=== PATIENT | female | born 1945 | race Caucasian/White ===

== ENCOUNTER 2017-03-13 06:10 | Inpatient (IN) ==
[2017-03-13] MEDS ORDERED: Lidocaine -MPF 1% 2 ML VIAL ID ONE (06:26)
[2017-03-13] MEDS ORDERED: CeFAZolin Syr 2,000MG/20 ML 2,000 MG/20 ML SYRINGE IVPB ONE (06:26)
[2017-03-13] MEDS ORDERED: Albuterol 2.5 MG/3 ML NEBULIZER IH ONE (06:26)
[2017-03-13] MEDS: Ringers Solution, Lactated 1,000 ML IVC SCH ×2 (06:40→11:23)
[2017-03-13] MEDS ORDERED: Lidocaine -MPF 4% 5 ML AMPUL ONE (06:51)
[2017-03-13] MEDS ORDERED: *HR* FentaNYL (PF) 100 MCG/2 ML VIAL ONE ×2 (06:51→08:52)
[2017-03-13] MEDS ORDERED: *HR* Propofol 200 MG/20 ML VIAL IVP ONE (06:51)
[2017-03-13] MEDS ORDERED: Lidocaine -MPF 2% 2 ML VIAL ONE ×2 (06:51→07:09)
[2017-03-13] MEDS ORDERED: Ondansetron 4 MG/2 ML VIAL ONE (06:52)
[2017-03-13] MEDS ORDERED: *HR* Heparin 5,000 UNIT/ML VIAL ONE (06:53)
--- NOTE | 2017-03-13 07:04 | Anesthesia Evaluation PreOp ---
Date of Encounter: 03/13/17 Time of Encounter: 07:00 - Past History Planned Operation: iliaac stent Cardiac History: HTN, Hyperlipidemia Pulmonary History: Smoker FIRE DISPATCHER History: Denies Any Significant HX Other Medical History: Thyroid, GERD Anesthesia History: No Prior Anesthetic Complications, Past Anesthesia Alcohol Use: none Drug use: none Medications and Allergies Clopidogrel [Plavix] 75 mg PO DAILY 05/25/15 [History] Omeprazole [PriLOSEC] 20 mg PO BIDAC #20 capsule. 05/25/15 [Rx] Acetaminophen [Tylenol] 1,000 mg PO Q6HR PRN #90 tablet 01/29/17 [Rx] Fluticasone Propionate Nasal [Flonase] 50 mcg NS HS 01/29/17 [History] Lisinopril [Zestril] 5 mg PO DAILY 01/29/17 [History] Loratadine [Claritin] 10 mg PO DAILY 01/29/17 [History] Olopatadine HCl [Patanol] 5 ml OP BID 01/29/17 [History] 3 Allergy/AdvReac Type Severity Reaction Status Date / Time No Known Allergies Allergy Verified 06/08/16 12:39 - Meds/Allergy Pre-op Review Medications Reviewed: Yes Allergies Reviewed: Yes Beta Blockers on Current Med List: No Anesthesia Results - Labs Laboratory Tests 03/12/17 03/12/17 03/12/17 16:50 16:50 16:50 WBC 7.9 Hgb 12.5 Hct 37.4 Plt Count 303 PT 12.1 INR 1.1 APTT 31.3 Sodium 141 Potassium 4.1 Chloride 104 Carbon Dioxide 27 BUN 9 Creatinine 0.78 - Imaging EKG: image reviewed (sinus rhythm) Anesthesia Exam Weight: 54 kg NPO (# of Hours): over 8 hours - HEENT Pupil (Motor): Pupils equal Mallampati: I Teeth: Edentulous Oral Opening: Greater than 3 - Cardiac Rhythm: Regular Murmur: None - Pulmonary Breath Sounds: bilateral Rhonchi (clears with coughing) Respiratory Effort: Symmetrical Anesthesia Assess/Plan ASA Score: 3 Modified Kari Scale for Level of Consciousness: Cooperative, oriented, and tranquil Anesthetic Plan: General Monitoring Plan: Standard Monitors Recovery Plan: PACU
[2017-03-13] MEDS ORDERED: Heparin 1,000 UNITS/500 mL NS 1,500 ML ONE (07:19)
[2017-03-13] MEDS ORDERED: Vancomycin 1,000 MG VIAL ONE (07:20)
[2017-03-13] MEDS ORDERED: Vancomycin 750 MG in D5% in Water 250 ML IVPB ONE ×3 (07:31→20:30)
--- NOTE | 2017-03-13 07:31 | History & Physical Report ---
Date of Encounter: 03/13/17 Time of Encounter: 07:28 24 Hour HP Update - Instructions Instructions: If the History and Physical is less than 30 days old and was completed prior to A.M. admission and or procedure and has NOT been updated on calendar day of procedure please complete this update prior to performing procedure. - Update Patient reports changes in Medical Condition: No Changes in examination, assessment, or condition: No Changes in Medication: No Preop tests/diagnostics Reviewed: Yes Surgery Remains Indicated: Yes Consent for Planned Operative Procedure(s) Verified: Yes - Pre-Operative Checklist Preoperative Checklist Indicated: Yes Prophylactic Antibiotic Ordered: Yes (vancomycin due to MRSA risk) Home Medications Include Beta Judith: No Beta Judith Taken Today (Day of Surgery): No Beta Judith Taken Yesterday (Day Prior to Surgery): No Is VTE Prophylaxis Indicated?: Yes
[2017-03-13] MEDS ORDERED: Esmolol 100 MG/10 ML VIAL IVP ONE (08:25)
[2017-03-13] MEDS ORDERED: Lacri-Lube 3.5 GM TUBE ONE (08:25)
[2017-03-13] MEDS ORDERED: Heparin 1,000 UNITS/500 mL NS 500 ML ONE (08:26)
[2017-03-13] MEDS ORDERED: *HR* Promethazine 25 MG/ML VIAL IVP PRN (08:35)
[2017-03-13] MEDS ORDERED: Ondansetron 4 MG/2 ML VIAL IVP ONE (08:35)
[2017-03-13] MEDS ORDERED: *HR* Labetalol 20 MG/4 ML SYRINGE IVP PRN ×2 (08:35→13:10)
[2017-03-13] MEDS ORDERED: EPHEDrine 50 MG/ML VIAL ONE (09:00)
[2017-03-13] MEDS ORDERED: Dexamethasone 4 MG/ML VIAL ONE (09:40)
[2017-03-13] MEDS ORDERED: *HR* Rocuronium Bromide 50 MG/5 ML VIAL ONE (09:40)
[2017-03-13] MEDS ORDERED: Neostigmine Methylsulfate 3 MG/3 ML SYRINGE ONE (09:40)
[2017-03-13] MEDS ORDERED: *HR* Phenylephrine 10 MG/ML VIAL ONE (09:40)
[2017-03-13] MEDS ORDERED: *HR* Labetalol 100 MG/20 ML MDV ONE (10:11)
[2017-03-13] MEDS ORDERED: *HR* HYDROmorphone 2 MG/ML SYRINGE ONE (10:17)
--- NOTE | 2017-03-13 10:30 | Operative Note ---
Date of procedure: 03/13/17 Pre-op diagnosis: Peripheral vascular disease with disabling claudication Post-op diagnosis: same Procedure: 1. Introduction of catheter into aorta via right common femoral artery. 2. Aortogram with iliac angiogram. 3. Right external iliac artery 6 x 37mm stent placement. 4. Right iliofemoral and deep femoral artery endarterectomy with bovine pericardial patch angioplasty. Complications: None Anesthesia: GETA Surgeon: Juve Hilton Estimated blood loss (cc): 50 Specimen: right lower extremity plaque Condition: stable Disposition: PACU Procedure in Detail: Indications: The patient is a 71 year old female who has peripheral vascular disease with severe disabling claudication and angiography revealed severe right iliac and femoral artery stenosis. Revascualrization was recommended to reduce her symptoms and risk of limb loss. Procedure: The patient was identified in the preoperative area. The risks, benefits and alternatives of the procedure were discussed and all questions were answered. The patient was taken to the operating room and placed in the supine position on the operating room table. After the induction of general endotracheal anesthesia, the patient was cleaned and draped in the normal sterile fashion. An oblique incision was made sharply over the right femoral vessels. Hemostasis was obtained with electrocautery. Through a process of blunt, sharp and electrocautery dissection, the distal external iliac, deep and superficial femoral arteries were dissected and surrounded with vessel loops. The patient received a bolus of heparin. After waiting adequate time for the heparin to circulate, the vessels were occluded with the vessel loops. The right common femoral artery was cannulated with a micropuncture needle. A microwire was advanced though the needle into the aorta under fluoroscopic view. The needle was exchanged for a micropuncture sheath. The wire and introducer were removed. A marshallindex wire was advanced into the aorta under fluroscopic view. The 4 belarusian microsheath was exchanged for a 6 bel[place]ian sheath over the wire. Angiography was performed for sizing. After obtaining an angiogram for measurements, A 6 x 37mm stent was advanced over the wire and positioned under fluoroscopic guidance. The stent was deployed and a completion angiogram revealed resolution of the stenotic segment. The wire and sheath was removed. The vessels were occluded by applying tension to the vessel loops. A longitudinal arteriotomy was in the common femoral artery and extended proximally into the distal external iliac artery. The plaque was noted to be firm and have multiple rossy of severe stenosis. An iliofemoral artery endarterectomy were then performed with a dental freer. Proximal and distal endpoints were inspected and no elevated flaps were noted. Release of the deep femoral vessel loop revealed stenosis with limited retrograde flow. An eversion endarterectomy was then performed on the deep femoral artery using a dental freer. The endpoint was smooth and without elevated flaps. The vessels were flushed with heparin. A bovine pericardial patch was cut to fit the arteriotomy and was sutured in place with a running 6- 0 Prolene suture. Prior to completing the patch, the vessels were flushed and infused with heparinized saline. The patch was completed and flow was restored. A polyphasic signal was identified in the superficial femoral and deep femoral arteries. The wound was irrigated with antibiotic containing saline. Hemostasis was obtained with electrocautery. Platelet rich and platelet poor plasma were infused into the wound. The wound was reapproximated with 2-0 and 3-0 vicryl. Skin was reapproximated with 3-0 Monocryl. Sterile dressings were applied. The patient was extubated and taken to the recover room in stable condition.
[2017-03-13] MEDS: *HR* HYDROmorphone (PF) 1 MG/ML SYRINGE IVP PRN ×2 (10:51→10:59)
[2017-03-13] MEDS ORDERED: Acetaminophen 325 MG TABLET PO PRN (13:10)
[2017-03-13] MEDS ORDERED: *HR* Morphine 2 MG/ML SYRINGE IVP PRN (13:10)
[2017-03-13] MEDS ORDERED: *HR* HYDROcodone/Acet 5/325 mg TABLET PO PRN (13:10)
[2017-03-13] MEDS ORDERED: Naloxone 0.4 MG/ML INJ IVP PRN (13:10)
[2017-03-13] MEDS ORDERED: Ondansetron 4 MG/2 ML VIAL IVP PRN (13:10)
[2017-03-13] MEDS ORDERED: Fluticasone Propionate Nasal 50 MCG/SPRAY BOTTLE NS PRN (13:10)
[2017-03-13] MEDS ORDERED: *HR* OxyCODONE Immed Rel 5 MG TABLET PO PRN (13:10)
[2017-03-13] MEDS: *HR* Metoprolol 5 MG/5 ML VIAL IVP SCH ×2 (13:59→17:58)
[2017-03-13] MEDS: CeFAZolin Premix DUPLEX 2,000 MG/50 ML BAG IVPB SCH (17:58)
[2017-03-13] MEDS ORDERED: Vancomycin 0 MG in D5% in Water 250 ML IVPB ONE (18:30)
[2017-03-13] MEDS: (Olopatadine Hcl [Patanol] 5 ML) OP SCH (21:13)
[2017-03-14] MEDS: *HR* Metoprolol 5 MG/5 ML VIAL IVP SCH ×2 (02:59→06:42)
[2017-03-14] MEDS: CeFAZolin Premix DUPLEX 2,000 MG/50 ML BAG IVPB SCH (03:52)
[2017-03-14] MEDS ORDERED: *HR* Heparin 5,000 UNIT/ML VIAL SQ SCH ×2 (06:00)
[2017-03-14 06:26] LABS: Basophils % 0.2 %; Eosinophils # 0.1 K/mcL (0.0-0.6); Eosinophils % 0.5 %; Hematocrit 31.4 % (35.3-44.9); Hemoglobin 10.3 g/dL (11.5-15.4); Immature Granulocytes % 0.2 % (0-4); Lymphocytes # 2.6 K/mcL (0.6-4.6); Lymphocytes % 26.3 %; Mean Corpuscular HGB Conc 32.8 g/dL (31.6-35.5); Mean Corpuscular Hemoglobin 29.5 pg (28.0-33.3); Mean Platelet Volume 9.2 fL (9.4-12.4); Monocytes # 0.8 K/mcL (0.0-1.3); Monocytes % 7.9 %; Neutrophils # 6.5 K/mcL (1.6-8.9); Platelet Count 229 K/mcL (140-400); Red Blood Count 3.49 M/mcL (3.82-4.97); Red Cell Distribution Width 13.9 % (11.5-14.5); Segmented Neutrophils % 64.9 %
[2017-03-14 06:29] LABS: BUN/Creatinine Ratio 14 (6-26); Blood Urea Nitrogen 10 mg/dL (7-20); Calcium 8.6 mg/dL (8.6-10.8); Carbon Dioxide 22 mEq/L (19-29); Chloride 105 mEq/L (98-109); Glucose 107 mg/dL (70-99); Osmolality,Calculated 290 (280-300); Potassium 3.7 mEq/L (3.5-4.5); Sodium 140 mEq/L (136-145); eGFR For African Americans > 60 (> 60); eGFR For Non-African Americans > 60 (> 60)
--- NOTE | 2017-03-14 07:25 | Discharge Summary ---
Date of Encounter: 03/14/17 Time of Encounter: 08:05 - Discharge Medications Prescriptions: HYDROcodone/Acet 5/325 mg [Grant 5-325 mg] 1 tab PO Q4H PRN #18 tablet PRN Reason: POSTOPERATIVE PAIN Home Medications: Clopidogrel [Plavix] 75 mg PO DAILY 05/25/15 [History] Fluticasone Propionate Nasal [Flonase] 50 mcg NS HS PRN 01/29/17 [History] Olopatadine HCl [Patanol] 5 ml OP BID 01/29/17 [History] Lisinopril [Zestril] 10 mg PO DAILY 03/13/17 [History] Montelukast [Singulair] 10 mg PO HS 03/13/17 [History] Omeprazole [PriLOSEC] 40 mg PO DAILY 03/13/17 [History] Xyzal 5 mg PO DAILY 03/13/17 [History] HYDROcodone/Acet 5/325 mg [Grant 5-325 mg] 1 tab PO Q4H PRN #18 tablet 03/14/17 [Rx] Allergies/Adverse Reactions: 3 Allergy/AdvReac Type Severity Reaction Status Date / Time No Known Allergies Allergy Verified 03/13/17 07:25 Date of admission: 03/13/17 13:08 Primary care physician: PCP NONE - Patient Status Disposition: Home, Self-Care Condition: Good Functional capacity at discharge: independent ambulation Overall status at discharge: patient is back to baseline - Discharge Instructions Instructions: Peripheral Vascular Disorders (DC), Peripheral Vascular Angioplasty (DC) Follow Up With: Juve Hilton MD [Partnered Physician] - 04/09/17 2:00 pm NONE,PCP [Primary Care Provider] - Additional Instructions: May remove bandage and shower 03/15/17. Wash wound gently and pat to dry. Apply dry gauze to wound daily for 7 days. No tub baths or swimming until 04/11/16. Call Dr. Hilton at [phone] with questions or concerns. - Diet and Activity Activity: increase activity as tolerated Diet: advance to your usual diet - Hospital Course Hospital course: Ms. Myers is a 71 year old female - Time Spent with Patient Total time spent providing and/or coordinating discharge services: Exam Vital Signs, Last 4 Hours Temp Pulse Resp BP Pulse Ox 03/14/17 06:00 70 16 129/80 95 03/14/17 04:00 98.3 F 73 20 124/67 95 - VTE Documentation of Mechanical Device: Intermittent pneumatic compression device
[2017-03-14] MEDS: (Olopatadine Hcl [Patanol] 5 ML) OP SCH (09:32)
[2017-03-14 11:28] VITALS: BP 138/67
== END 2017-03-14 11:40 | disposition home or self-care (01) | DRG 254 ==
LOC: SAMDAY 06:10 → ICNU 13:08
PROVIDERS: ADMIT Surgery; ATTEND Surgery

== ENCOUNTER 2021-02-15 09:15 | Inpatient (IN) ==
[2021-02-15] MEDS ORDERED: CeFAZolin Syr 2,000MG/20 ML 2,000 MG/20 ML SYRINGE IVPB ONE (09:38)
[2021-02-15] MEDS ORDERED: *HR* Propofol 200 MG/20 ML VIAL IVP ONE (09:39)
[2021-02-15] MEDS ORDERED: Ondansetron 4 MG/2 ML VIAL ONE (09:39)
[2021-02-15] MEDS ORDERED: Lidocaine -MPF 2% 5 ML VIAL ONE ×2 (09:39→12:17)
[2021-02-15] MEDS ORDERED: *HR* Succinylcholine 200 MG/10 ML VIAL IVP ONE (09:39)
[2021-02-15] MEDS ORDERED: *HR* Rocuronium Bromide 50 MG/5 ML VIAL ONE (09:39)
[2021-02-15] MEDS ORDERED: Lidocaine HCL 4 ML Topical Solution (Laryng-O-Jet Kit Sterile Pak) TP ONE (09:39)
[2021-02-15] MEDS ORDERED: *HR* FentaNYL (PF) 100 MCG/2 ML VIAL ONE (09:39)
[2021-02-15] MEDS ORDERED: Famotidine 20 MG/2 ML VIAL IVP ONE (09:43)
[2021-02-15] MEDS ORDERED: *HR* Labetalol 20 MG/4 ML SYRINGE IVP PRN ×2 (09:43→16:33)
[2021-02-15] MEDS ORDERED: Acetaminophen IV 1,000 MG/100 ML BAG IVPB ONE (09:43)
[2021-02-15] MEDS ORDERED: *HR* OxyCODONE Immed Rel 5 MG TABLET PO PRN ×2 (09:43→16:33)
[2021-02-15] MEDS ORDERED: *HR* HYDROmorphone 2 MG TABLET PO PRN (09:43)
[2021-02-15] MEDS ORDERED: Ringers Solution, Lactated 1,000 ML IVC SCH (09:45)
[2021-02-15] MEDS ORDERED: Vancomycin 1,000 MG, Sodium Chloride IRRigation 1,000 ML IR ONE (11:00)
[2021-02-15] MEDS ORDERED: EPHEDrine 50 MG/ML VIAL ONE (13:04)
[2021-02-15] MEDS ORDERED: EPINEPHrine 1 MG/ML VIAL ONE (13:45)
[2021-02-15] MEDS ORDERED: *HR* Vasopressin 20 UNIT/ML VIAL ONE (14:12)
[2021-02-15] MEDS ORDERED: Nitroglycerin 0 MG/0 ML INFUS..BTL IVC ONE (14:12)
[2021-02-15] MEDS ORDERED: *HR* Norepinephrine 4 MG/4 ML VIAL IVC ONE (14:12)
[2021-02-15] MEDS ORDERED: NiCARdipine 2.5 MG/10 ML Syringe IVPB ONE (14:12)
[2021-02-15] MEDS ORDERED: Sugammadex Sodium 200 MG/2 ML VIAL IV ONE (15:00)
[2021-02-15] MEDS: *HR* HYDROmorphone (PF) 1 MG/ML SYRINGE IVP PRN ×2 (15:38→15:48)
[2021-02-15] MEDS ORDERED: Naloxone 0.4 MG/ML INJ IVP PRN (16:33)
[2021-02-15] MEDS ORDERED: Acetaminophen 325 MG TABLET PO PRN (16:33)
[2021-02-15] MEDS ORDERED: 0.9 % Sodium Chloride 500 ML IVC SCH (16:45)
[2021-02-15] MEDS: *HR* HYDROcodone/Acet 5/325 mg TABLET PO PRN ×2 (17:05→23:34)
[2021-02-15] MEDS: *HR* Metoprolol 5 MG/5 ML VIAL IVP SCH ×2 (17:09→23:40)
[2021-02-15] MEDS ORDERED: Heparin 1,000 UNITS/500 mL 1,000 ML ONE (18:44)
[2021-02-15] MEDS ORDERED: Bupivacaine-MPF 0.25% 10 ML VIAL ONE (18:44)
[2021-02-15] MEDS: CeFAZolin 2 GM/120 ML BAG IVPB SCH (19:42)
[2021-02-16] MEDS: CeFAZolin 2 GM/120 ML BAG IVPB SCH (02:24)
[2021-02-16] MEDS: *HR* Metoprolol 5 MG/5 ML VIAL IVP SCH ×2 (05:42→13:25)
[2021-02-16] MEDS ORDERED: *HR* Heparin 5,000 UNIT/ML VIAL SQ SCH ×3 (06:00→06:45)
[2021-02-16] MEDS: *HR* HYDROcodone/Acet 5/325 mg TABLET PO PRN (09:30)
[2021-02-16] MEDS ORDERED: 0.9 % Sodium Chloride 500 ML IVC ONE (10:29)
[2021-02-16] MEDS ORDERED: 0.9 % Sodium Chloride 500 ML ONE (10:38)
[2021-02-16 11:08] VITALS: O2SAT 98
[2021-02-16 11:39] VITALS: BP 160/81
[2021-02-16 11:56] VITALS: PULSE 70; TEMP 98.5
== END 2021-02-16 14:01 | disposition home or self-care (01) | DRG 39 ==
LOC: SAMDAY 09:15 → 2NNU 16:33
PROVIDERS: ADMIT Surgery; ATTEND Surgery

== ENCOUNTER 2021-06-06 11:49 | Inpatient (IN) ==
[~2021-06-06 11:49] MED LIST: Acetaminophen IV 1,000 MG/100 ML BAG IVPB ONE; Famotidine 20 MG/2 ML VIAL IVP ONE
[2021-06-06] MEDS ORDERED: CeFAZolin Syr 2,000MG/20 ML 2,000 MG/20 ML SYRINGE IVPB ONE (12:23)
[2021-06-06] MEDS ORDERED: Albumin Human 5% 12.5 GM/250 ML IV.SOLN ONE (12:24)
[2021-06-06] MEDS ORDERED: *HR* Vasopressin 20 UNIT/ML VIAL ONE (12:24)
[2021-06-06] MEDS ORDERED: Ringers Solution, Lactated 1,000 ML IVC SCH (12:30)
[2021-06-06] MEDS ORDERED: Heparin 1,000 UNITS/500 mL 500 ML ONE (12:31)
[2021-06-06] MEDS ORDERED: *HR* Phenylephrine 10 MG/ML VIAL ONE (12:31)
[2021-06-06] MEDS ORDERED: Protamine Sulfate 50 MG/5 ML VIAL IVP ONE ×2 (12:32→16:05)
[2021-06-06] MEDS ORDERED: Heparin 1,000 UNITS/500 mL 1,000 ML ONE (12:33)
[2021-06-06] MEDS ORDERED: Bupivacaine-MPF 0.25% 10 ML VIAL ONE (12:33)
[2021-06-06] MEDS ORDERED: Vancomycin 1,000 MG VIAL ONE (12:34)
[2021-06-06] MEDS ORDERED: *HR* Remifentanil 2 MG VIAL IVP ONE (12:35)
[2021-06-06] MEDS ORDERED: *HR* Propofol 200 MG/20 ML VIAL IVP ONE (12:37)
[2021-06-06] MEDS ORDERED: Ondansetron 4 MG/2 ML VIAL ONE (12:38)
[2021-06-06] MEDS ORDERED: Lidocaine -MPF 2% 5 ML VIAL ONE (12:38)
[2021-06-06] MEDS ORDERED: *HR* Rocuronium Bromide 50 MG/5 ML VIAL ONE ×2 (12:38→16:21)
[2021-06-06] MEDS ORDERED: Lidocaine HCL 4 ML Topical Solution (Laryng-O-Jet Kit Sterile Pak) TP ONE (12:38)
[2021-06-06] MEDS ORDERED: *HR* FentaNYL (PF) 100 MCG/2 ML VIAL ONE ×2 (12:38→14:34)
[2021-06-06] MEDS ORDERED: *HR* Etomidate 40 MG/20 ML VIAL IVP ONE (13:44)
[2021-06-06] MEDS ORDERED: EPHEDrine 50 MG/ML VIAL ONE (14:00)
[2021-06-06] MEDS ORDERED: *HR* Heparin 5,000 UNIT/ML VIAL ONE (14:38)
[2021-06-06] MEDS ORDERED: Albuterol 2.5 MG/3 ML NEBULIZER IH PRN (15:10)
[2021-06-06] MEDS ORDERED: Ondansetron 4 MG/2 ML VIAL IVP PRN ×2 (15:10→18:34)
[2021-06-06] MEDS ORDERED: *HR* FentaNYL (PF) 100 MCG/2 ML VIAL IVP PRN (15:10)
[2021-06-06] MEDS ORDERED: Nitroglycerin 0.4 MG TAB.SUBL SL PRN (15:10)
[2021-06-06] MEDS ORDERED: Naloxone 0.4 MG/ML INJ IVP PRN ×2 (15:10→18:34)
[2021-06-06] MEDS ORDERED: *HR* HYDROmorphone (PF) 1 MG/ML SYRINGE IVP PRN (15:10)
[2021-06-06] MEDS ORDERED: *HR* Labetalol 20 MG/4 ML SYRINGE IVP ONE (15:11)
[2021-06-06] MEDS ORDERED: Vancomycin 1,000 MG, Sodium Chloride IRRigation 1,000 ML IR ONE (15:40)
[2021-06-06] MEDS ORDERED: Sugammadex Sodium 200 MG/2 ML VIAL IV ONE (16:30)
[2021-06-06] MEDS ORDERED: *HR* HYDROMORPHONE 2 MG/ML VIAL ONE (17:03)
[2021-06-06] MEDS ORDERED: Gabapentin 100 MG CAPSULE PO STA (18:01)
[2021-06-06] MEDS ORDERED: 0.9 % Sodium Chloride 1,000 ML IVC SCH (18:34)
[2021-06-06] MEDS ORDERED: Acetaminophen 325 MG TABLET PO PRN (18:34)
[2021-06-06] MEDS ORDERED: *HR* Labetalol 20 MG/4 ML SYRINGE IVP PRN (18:34)
[2021-06-06] MEDS ORDERED: *HR* HYDROcodone/Acet 5/325 mg TABLET PO PRN (18:34)
[2021-06-06] MEDS ORDERED: *HR* OxyCODONE Immed Rel 5 MG TABLET PO PRN (18:34)
[2021-06-06] MEDS: *HR* Metoprolol 5 MG/5 ML VIAL IVP SCH (20:58)
[2021-06-06] MEDS: CeFAZolin 2 GM/120 ML BAG IVPB SCH (21:03)
[2021-06-07] MEDS: *HR* Metoprolol 5 MG/5 ML VIAL IVP SCH ×3 (00:41→11:38)
[2021-06-07] MEDS: CeFAZolin 2 GM/120 ML BAG IVPB SCH (03:20)
[2021-06-07] MEDS ORDERED: *HR* Heparin 5,000 UNIT/ML VIAL SQ SCH (06:00)
[2021-06-07] MEDS: *HR* Heparin 5,000 UNIT/ML VIAL SQ SCH ×2 (06:11→06:17)
[2021-06-07] MEDS ORDERED: Cholecalciferol (D-3) 1,000 UNIT (25MCG) TABLET PO SCH (09:00)
[2021-06-07] MEDS ORDERED: tiZANidine 4 MG TABLET PO SCH (09:00)
[2021-06-07 11:02] VITALS: BP 129/93; PULSE 79; TEMP 98.6; O2SAT 97
== END 2021-06-07 14:40 | disposition home or self-care (01) | DRG 39 ==
LOC: SAMDAY 11:49 → 2NNU 18:36
PROVIDERS: ADMIT Surgery; ATTEND Surgery

== ENCOUNTER 2021-07-26 09:58 | Inpatient (IN) ==
[2021-07-26] MEDS ORDERED: *HR* FentaNYL (PF) 100 MCG/2 ML VIAL ONE ×2 (10:08→14:20)
[2021-07-26] MEDS ORDERED: *HR* Propofol 200 MG/20 ML VIAL IVP ONE (10:08)
[2021-07-26] MEDS ORDERED: Lidocaine -MPF 2% 2 ML VIAL ONE (10:09)
[2021-07-26] MEDS ORDERED: Ondansetron 4 MG/2 ML VIAL ONE (10:12)
[2021-07-26] MEDS ORDERED: *HR* Rocuronium Bromide 50 MG/5 ML VIAL ONE (10:12)
[2021-07-26] MEDS ORDERED: Lidocaine HCL 4 ML Topical Solution (Laryng-O-Jet Kit Sterile Pak) TP ONE (10:12)
[2021-07-26] MEDS ORDERED: CeFAZolin Syr 2,000MG/20 ML 2,000 MG/20 ML SYRINGE IVPB ONE (10:35)
[2021-07-26] MEDS: Ringers Solution, Lactated 1,000 ML IVC SCH ×2 (11:02→16:58)
[2021-07-26] MEDS ORDERED: *HR* OxyCODONE Immed Rel 5 MG TABLET PO PRN ×2 (11:21→19:05)
[2021-07-26] MEDS ORDERED: *HR* HYDROmorphone 2 MG TABLET PO PRN (11:21)
[2021-07-26] MEDS ORDERED: *HR* Labetalol 20 MG/4 ML SYRINGE IVP PRN ×2 (11:21→19:05)
[2021-07-26] MEDS ORDERED: Famotidine 20 MG/2 ML VIAL IVP ONE (11:21)
[2021-07-26] MEDS ORDERED: ACETAMINOPHEN 720 MG/72 ML IVPB ONE (11:21)
[2021-07-26] MEDS ORDERED: Ipratropium/Albuterol Neb 3 ML IH ONE (11:57)
[2021-07-26] MEDS ORDERED: Protamine Sulfate 50 MG/5 ML VIAL IVP ONE (12:08)
[2021-07-26] MEDS ORDERED: Bupivacaine-MPF 0.25% 10 ML VIAL ONE (12:08)
[2021-07-26] MEDS ORDERED: Heparin 1,000 UNITS/500 mL 1,000 ML ONE (12:09)
[2021-07-26] MEDS ORDERED: Vancomycin 1,000 MG, Sodium Chloride IRRigation 1,000 ML IR ONE (12:10)
[2021-07-26] MEDS ORDERED: EPHEDrine 50 MG/ML VIAL ONE (13:11)
[2021-07-26] MEDS ORDERED: *HR* Heparin 5,000 UNIT/ML VIAL ONE (14:25)
[2021-07-26] MEDS ORDERED: Sugammadex Sodium 200 MG/2 ML VIAL IV ONE (15:43)
[2021-07-26] MEDS: *HR* HYDROmorphone (PF) 1 MG/ML SYRINGE IVP PRN ×4 (16:06→16:39)
[2021-07-26] MEDS ORDERED: 0.9 % Sodium Chloride 1,000 ML IVC SCH (19:05)
[2021-07-26] MEDS ORDERED: Naloxone 0.4 MG/ML INJ IVP PRN (19:05)
[2021-07-26] MEDS ORDERED: traZODone 50 MG TABLET PO PRN (19:05)
[2021-07-26] MEDS ORDERED: Acetaminophen 325 MG TABLET PO PRN (19:05)
[2021-07-26] MEDS ORDERED: CeFAZolin 2 GM/120 ML BAG IVPB SCH (19:05)
[2021-07-26] MEDS: *HR* Metoprolol 5 MG/5 ML VIAL IVP SCH ×2 (20:30→23:16)
[2021-07-26] MEDS: CeFAZolin 2 GM/120 ML BAG IVPB SCH (20:43)
[2021-07-26] MEDS: *HR* HYDROcodone/Acet 5/325 mg TABLET PO PRN (20:43)
[2021-07-26] MEDS ORDERED: tiZANidine 4 MG TABLET PO SCH (21:00)
[2021-07-27] MEDS: CeFAZolin 2 GM/120 ML BAG IVPB SCH (03:37)
[2021-07-27 03:52] LABS: Basophils % 0.5 %; Eosinophils % 0.1 %; Hematocrit 20.7 % (35.3-44.9); Hemoglobin 6.4 g/dL (11.5-15.4); Immature Granulocytes % 0.5 % (0-4); Lymphocytes # 1.4 K/mcL (0.6-4.6); Lymphocytes % 16.7 %; Mean Corpuscular HGB Conc 30.9 g/dL (31.6-35.5); Mean Corpuscular Hemoglobin 28.1 pg (28.0-33.3); Mean Corpuscular Volume 90.8 fL (83.0-100.0); Mean Platelet Volume 9.3 fL (9.4-12.4); Monocytes # 0.8 K/mcL (0.0-1.3); Monocytes % 9.2 %; Platelet Count 221 K/mcL (140-400); Red Blood Count 2.28 M/mcL (3.82-4.97); Red Cell Distribution Width 13.8 % (11.5-14.5); White Blood Count 8.2 K/mcL (4.3-11.1)
[2021-07-27 04:06] LABS: BUN/Creatinine Ratio 14 (6-26); Blood Urea Nitrogen 12 mg/dL (8-23); Calcium 8.2 mg/dL (8.6-10.3); Carbon Dioxide 24 mEq/L (23-29); Chloride 105 mEq/L (98-107); Glucose 137 mg/dL (70-105); Osmolality,Calculated 282 (280-300); Potassium 4.2 mEq/L (3.5-5.1); Sodium 135 mEq/L (136-145); eGFR For African Americans > 60 (> 60); eGFR For Non-African Americans > 60 (> 60)
[2021-07-27] MEDS: *HR* Metoprolol 5 MG/5 ML VIAL IVP SCH ×2 (05:22→13:12)
[2021-07-27] MEDS ORDERED: *HR* Heparin 5,000 UNIT/ML VIAL SQ SCH ×2 (06:00)
[2021-07-27 08:55] LABS: Basophils # 0.1 K/mcL (0.0-0.2); Basophils % 0.7 %; Eosinophils # 0.1 K/mcL (0.0-0.6); Eosinophils % 0.7 %; Hematocrit 20.8 % (35.3-44.9); Hemoglobin 6.7 g/dL (11.5-15.4); Immature Granulocytes % 0.5 % (0-4); Lymphocytes # 2.4 K/mcL (0.6-4.6); Lymphocytes % 26.8 %; Mean Corpuscular HGB Conc 32.2 g/dL (31.6-35.5); Mean Corpuscular Hemoglobin 29.1 pg (28.0-33.3); Mean Corpuscular Volume 90.4 fL (83.0-100.0); Mean Platelet Volume 9.5 fL (9.4-12.4); Monocytes # 0.8 K/mcL (0.0-1.3); Monocytes % 8.8 %; Neutrophils # 5.5 K/mcL (1.6-8.9); Platelet Count 218 K/mcL (140-400); Red Cell Distribution Width 13.8 % (11.5-14.5); Segmented Neutrophils % 62.5 %; White Blood Count 8.8 K/mcL (4.3-11.1)
[2021-07-27 13:10] VITALS: BP 118/46; PULSE 85; TEMP 98.4; O2SAT 100
[2021-07-27 15:30] LABS: Hematocrit 25.1 % (35.3-44.9); Hemoglobin 7.8 g/dL (11.5-15.4)
[2021-07-27] MEDS: *HR* HYDROcodone/Acet 5/325 mg TABLET PO PRN (15:57)
== END 2021-07-27 16:42 | disposition home or self-care (01) | DRG 253 ==
LOC: SAMDAY 09:58 → 2NNU 18:59
PROVIDERS: ADMIT Surgery; ATTEND Surgery

== ENCOUNTER 2021-12-13 06:08 | Inpatient (IN) ==
[2021-12-13] MEDS ORDERED: Protamine Sulfate 50 MG/5 ML VIAL IVP ONE (06:28)
[2021-12-13] MEDS ORDERED: Bupivacaine-MPF 0.25% 10 ML VIAL ONE (06:29)
[2021-12-13] MEDS ORDERED: Heparin 1,000 UNITS/500 mL 500 ML ONE (06:29)
[2021-12-13] MEDS ORDERED: CeFAZolin Syr 2,000MG/20 ML 2,000 MG/20 ML SYRINGE IVPB ONE (06:31)
[2021-12-13] MEDS ORDERED: Ondansetron 4 MG/2 ML VIAL ONE (06:32)
[2021-12-13] MEDS ORDERED: Lidocaine -MPF 2% 5 ML VIAL ONE (06:32)
[2021-12-13] MEDS ORDERED: *HR* Rocuronium Bromide 50 MG/5 ML VIAL ONE ×2 (06:32→09:05)
[2021-12-13] MEDS ORDERED: *HR* Propofol 200 MG/20 ML VIAL IVP ONE (06:32)
[2021-12-13] MEDS ORDERED: *HR* FentaNYL (PF) 100 MCG/2 ML VIAL ONE (06:32)
[2021-12-13] MEDS ORDERED: *HR* Phenylephrine 10 MG/ML VIAL ONE (06:38)
[2021-12-13] MEDS ORDERED: *HR* Vasopressin 20 UNIT/ML VIAL ONE (06:45)
[2021-12-13] MEDS ORDERED: Ringers Solution, Lactated 1,000 ML IVC SCH (06:45)
[2021-12-13] MEDS ORDERED: Dexmedetomidine HCl 400 MCG/100 ML MLS IVC ONE (06:45)
[2021-12-13] MEDS ORDERED: NiCARdipine 2.5 MG/10 ML Syringe IVPB ONE (06:45)
[2021-12-13] MEDS ORDERED: Albumin Human 5% 0 GM/0 ML IV.SOLN ONE (06:45)
[2021-12-13] MEDS ORDERED: *HR* OxyCODONE Immed Rel 5 MG TABLET PO PRN ×2 (07:44→13:59)
[2021-12-13] MEDS ORDERED: Promethazine 6.25 MG in Water for inj. (sterile) 20 ML IVPB PRN (07:45)
[2021-12-13] MEDS ORDERED: Vancomycin 1,000 MG, Sodium Chloride IRRigation 1,000 ML IR ONE (07:45)
[2021-12-13] MEDS ORDERED: Ondansetron 4 MG/2 ML VIAL IVP PRN ×2 (07:45→13:59)
[2021-12-13] MEDS ORDERED: *HR* Magnesium Sulfate 1 GM/2 ML VIAL ONE (08:42)
[2021-12-13] MEDS ORDERED: *HR* Heparin 5,000 UNIT/ML VIAL ONE (09:21)
[2021-12-13] MEDS ORDERED: Sugammadex Sodium 200 MG/2 ML VIAL IV ONE (10:37)
[2021-12-13] MEDS ORDERED: *HR* HYDROMORPHONE 2 MG/ML VIAL ONE (10:47)
[2021-12-13] MEDS: *HR* HYDROmorphone PF 0.5 MG/0.5 ML SYRINGE IVP PRN ×2 (12:15→12:35)
[2021-12-13] MEDS ORDERED: Naloxone 0.4 MG/ML INJ IVP PRN (13:59)
[2021-12-13] MEDS ORDERED: *HR* HYDROcodone/Acet 5/325 mg TABLET PO PRN (13:59)
[2021-12-13] MEDS ORDERED: traZODone 50 MG TABLET PO PRN (13:59)
[2021-12-13] MEDS ORDERED: *HR* Labetalol 20 MG/4 ML SYRINGE IVP PRN (13:59)
[2021-12-13] MEDS ORDERED: 0.9 % Sodium Chloride 1,000 ML IVC SCH (13:59)
[2021-12-13] MEDS: *HR* Metoprolol 5 MG/5 ML VIAL IVP SCH ×2 (14:33→17:49)
[2021-12-13] MEDS ORDERED: CeFAZolin 2,000 MG/120 ML BAG IVPB SCH (16:00)
[2021-12-13] MEDS ORDERED: 0.9 % Sodium Chloride 1,000 ML IV ONE (16:31)
[2021-12-13] MEDS ORDERED: 0.9 % Sodium Chloride 500 ML IV ONE (16:34)
[2021-12-13] MEDS ORDERED: 0.9 % Sodium Chloride 500 ML ONE (16:37)
[2021-12-13] MEDS: 0.9 % Sodium Chloride 1,000 ML IVC SCH (16:44)
[2021-12-13] MEDS: CeFAZolin 2,000 MG/120 ML BAG IVPB SCH (16:44)
[2021-12-13] MEDS: Gabapentin 300 MG CAPSULE PO SCH (21:02)
[2021-12-14] MEDS: *HR* Metoprolol 5 MG/5 ML VIAL IVP SCH ×4 (00:34→23:22)
[2021-12-14] MEDS: CeFAZolin 2,000 MG/120 ML BAG IVPB SCH (00:40)
[2021-12-14 04:50] LABS: Basophils # 0.1 K/mcL (0.0-0.2); Basophils % 0.5 %; Eosinophils % 0.1 %; Hematocrit 20.6 % (35.3-44.9); Hemoglobin 6.4 g/dL (11.5-15.4); Immature Granulocytes % 0.4 % (0-4); Lymphocytes # 1.7 K/mcL (0.6-4.6); Lymphocytes % 17.6 %; Mean Corpuscular HGB Conc 31.1 g/dL (31.6-35.5); Mean Corpuscular Hemoglobin 27.2 pg (28.0-33.3); Mean Corpuscular Volume 87.7 fL (83.0-100.0); Mean Platelet Volume 9.1 fL (9.4-12.4); Monocytes # 1.1 K/mcL (0.0-1.3); Monocytes % 11.6 %; Neutrophils # 6.8 K/mcL (1.6-8.9); Platelet Count 202 K/mcL (140-400); Red Blood Count 2.35 M/mcL (3.82-4.97); Red Cell Distribution Width 16.5 % (11.5-14.5); Segmented Neutrophils % 69.8 %; White Blood Count 9.8 K/mcL (4.3-11.1)
[2021-12-14] MEDS: Acetaminophen 325 MG TABLET PO PRN ×2 (04:57→16:14)
[2021-12-14] MEDS: *HR* Heparin 5,000 UNIT/ML VIAL SQ SCH ×2 (04:58→17:57)
[2021-12-14 05:00] LABS: Calcium 7.9 mg/dL (8.6-10.3); Potassium 4.1 mEq/L (3.5-5.1)
[2021-12-14] MEDS ORDERED: *HR* Heparin 5,000 UNIT/ML VIAL SQ SCH (06:00)
[2021-12-14] MEDS ORDERED: Furosemide 20 MG/2 ML VIAL IVP ONE (07:48)
[2021-12-14] MEDS: Cholecalciferol (D-3) 1,000 UNIT (25MCG) TABLET PO SCH (09:00)
[2021-12-14] MEDS: Gabapentin 300 MG CAPSULE PO SCH ×2 (09:00→20:42)
[2021-12-14] MEDS: 0.9 % Sodium Chloride 1,000 ML IVC SCH (09:01)
[2021-12-14 14:39] LABS: Hematocrit 24.7 % (35.3-44.9)
[2021-12-14 14:46] LABS: Hemoglobin 8.1 g/dL (11.5-15.4)
[2021-12-14] MEDS ORDERED: tiZANidine 4 MG TABLET PO SCH (21:00)
[2021-12-14] MEDS ORDERED: Ringers Solution, Lactated 500 ML IVC ONE (23:42)
[2021-12-15] MEDS ORDERED: 0.9 % Sodium Chloride 250 ML ONE (00:05)
[2021-12-15] MEDS: 0.9 % Sodium Chloride 1,000 ML IVC SCH (02:34)
[2021-12-15] MEDS: *HR* Metoprolol 5 MG/5 ML VIAL IVP SCH (05:13)
[2021-12-15] MEDS: *HR* Heparin 5,000 UNIT/ML VIAL SQ SCH (05:42)
[2021-12-15] MEDS: Acetaminophen 325 MG TABLET PO PRN (06:15)
[2021-12-15 07:47] VITALS: BP 102/72; TEMP 99; O2SAT 97
[2021-12-15] MEDS: Gabapentin 300 MG CAPSULE PO SCH (10:36)
[2021-12-15] MEDS: Cholecalciferol (D-3) 1,000 UNIT (25MCG) TABLET PO SCH (10:36)
[2021-12-15 13:27] VITALS: PULSE 84
== END 2021-12-15 13:20 | disposition home or self-care (01) | DRG 254 ==
LOC: SAMDAY 06:08 → 2NNU 13:55
PROVIDERS: ADMIT Surgery; ATTEND Surgery